=== PATIENT | male | born 1985 | race Caucasian/White ===

== ENCOUNTER 2025-01-22 21:36 | Emergency (ER) | payer MEDICAID ==
[~2025-01-22] VITALS: Ht 157.5 cm; Wt 61.2 kg
[2025-01-22] MEDS ORDERED: POLY10DR OP (22:46)
[2025-01-22 22:58] VITALS: BP 126/80; TEMP 98; O2SAT 99
== END 2025-01-22 22:59 | disposition home or self-care (01) ==
LOC: ER 21:45
DX: H57.89 Other specified disorders of eye and adnexa (principal)